=== PATIENT | male | born 1940 | race Two or more races ===

== ENCOUNTER 2025-02-22 08:45 | Outpatient (RCR) | payer MEDICARE, SELFPAY | END 2025-02-22 23:59 | disposition home or self-care (01) | LOC: CRHB 08:45 | PROVIDERS: ATTENDING PHYSICIAN Internal Medicine Clinical Cardiac Electrophysiology; FAMILY PHYSICIAN Family Medicine | DX: Z95.5 Presence of coronary angioplasty implant and graft (principal); I25.10 Atherosclerotic heart disease of native coronary artery without angina pectoris (principal); I25.2 Old myocardial infarction | CPT/HCPCS: G0422; G0423 ==

== ENCOUNTER 2025-03-10 08:52 | Emergency (ER) | payer MEDICARE, SELFPAY ==
[2025-03-10 09:01] VITALS: BP 145/69
[2025-03-10 09:13] VITALS: BMI 27.5
[2025-03-10 09:15] VITALS: BP 157/81
--- NOTE | 2025-03-10 09:34 | ED.GENMED ---
History of Present Illness
General
Chief Complaint: Heart Rate Problem
Time Seen by Provider: 03/10/25 09:06
History of Present Illness
History of Present Illness:
84-year-old male with history of PE on Xarelto, paroxysmal A-fib, hypertension, hyperlipidemia, CAD with 2 stents placed in December 2024 presenting to the emergency department for elevated heart rate. Patient had a heart attack in December at [facility], at which time he had a stent placed to both his LAD and OM. Patient has been following at cardiac rehab at [place]. He was at cardiac rehab today, and while on the treadmill, after 15 minutes started to feel short of breath.
Heart rate went up to the 160s. Patient was sent to the ER for further evaluation. Denies ever having this issue during cardiac rehab in the past. Denies present chest pain or difficulty breathing. Patient has been following with his
information security risk analyst at [facility], Dr. Ying. Notes compliance with his medications. Denies recent fever or illness. Denies additional acute medical complaints
Phy Exam
Physical Exam
Physical Exam:
General: Well-appearing, no clinical signs of dehydration, nontoxic and in no acute distress
HEENT: protecting airway
Neck: appears supple
CV: Normal heart rate, regular rhythm
Resp: No accessory muscle use, no increased work of breathing
Abd: Soft and non-distended, no tenderness to palpation
Extremities: No deformities, no swelling, no erythema
Neuro: alert, no focal neurologic deficit
: deferred
Rectal: deferred
Psych: Normal affect
Skin: Intact
Course
Orders/Labs/Results
Orders:
Orders
03/10/25 08:54
Electrocardiogram (*1) Urgent
Reason for Study: Atrial Fibrillation
EKG- Treatment ONCE
03/10/25 09:30
CR Chest - 2 Views Urgent
Comment:
Reason For Exam: sob
03/10/25 10:13
Complete Blood Count/With Diff Urgent
Comprehensive Metabolic Panel Urgent
NT-proBNP Urgent
Troponin I Urgent
03/10/25 12:06
EKG- Treatment ONCE
03/10/25 13:00
Electrocardiogram (*1) Urgent
Reason for Study: Chest Pain
Troponin I Urgent
Abnormal Lab Results
03/10/25
10:13
WBC 3.5 L 10^3/uL
(4.8-10.8)
RBC 4.03 L 10^6/uL
(4.70-6.10)
Hgb 10.1 L g/dL
(13.0-18.0)
Hct 31.6 L %
(39.0-52.0)
MCV 78.4 L fL
(80.0-94.0)
MCH 25.1 L pg
(27.0-31.0)
MCHC 32.0 L g/dL
(33.0-37.0)
MPV 12.8 H fL
(7.4-10.4)
Absolute Lymphs (auto) 0.9 L 10^3/uL
(1.2-3.4)
Absolute Monos (auto) 0.7 H 10^3/uL
(0.1-0.6)
Monocytes % 20.1 H %
(1.7-9.3)
BUN 29 H mg/dl
(9-20)
Creatinine 1.5 H mg/dL
(0.7-1.3)
Glucose 113 H mg/dl
(70-99)
03/10/25 10:13
03/10/25 10:13
Vital Signs
Initial and Last Documented VS:
Initial Vital Signs
Temp
98.2 F
03/10/25 08:54
Last Documented Vital Signs
Temp Pulse Resp BP Pulse Ox
98.2 F 56 12 164/72 98
03/10/25 08:54 03/10/25 12:45 03/10/25 12:45 03/10/25 12:00 03/10/25 12:45
MDM/Problems Addressed
MDM/Problems Addressed:
84-year-old male with history of PE on Xarelto, paroxysmal A-fib, hypertension, hyperlipidemia, CAD with 2 stents placed in December 2024 presenting for episode of dyspnea and elevated heart rate while at cardiac rehab. Vital signs on arrival are
normal.
On exam patient is resting comfortably, no acute distress. Currently only reporting some 'fogginess ', otherwise denies chest pain or difficulty breathing. Patient arrives with tracings from cardiac rehab, show tachycardia up to 150 range, wide
complex. EKG on arrival however is sinus rhythm without acute evidence of ischemia. However, concerning story of exertional dyspnea with irregular heart rhythm. For this reason we will obtain laboratory analysis and plan for cardiac consultation.
10:30 -Case discussed with cardiology, who will come to evaluate
13:15 - Per cardiology assessment, in conjunction with discussion with his information security risk analyst, feel patient can go home. Financial Director is going to call him today and start him on another medication called Multaq. Plan for close interval follow-up with
cardiology. Strict return precautions were communicated to patient and patient verbalized understanding
*EKG
Interpreted by ED Provider?: Yes
EKG Intrepretation Date: 03/10/25
EKG Intrepretation Time: 09:37
Interpretation: normal
Comparison EKG: no comparison EKG present
Heart Rate: 77
Rate: normal
Rhythm: sinus
[place]: normal axis
Interval: normal interval
QRS Pattern: normal QRS
Ischemia: no ischemia
*Critical Care Note
Total Time (30-74mins, 75-104mins- exclusive of procedures): Not Applicable
ED Attending Note
-
Portions of this chart may have been created with voice recognition software.� Occasional wrong word or��sound alike� substitutions may have occurred due to the inherent limitations of voice recognition software.
Discharge Plan
Departure
Patient Disposition: Home (Routine Discharge)
Date of Disposition: 03/10/25
Time of Disposition: 13:19
Patient with high blood pressure during this ER visit?: No
Condition: Good
Discharge Problem:
Dyspnea, Tachycardia
Instructions: Shortness of breath in adults - ED discharge instructions
Referrals:
Eldon Dowell DO [Family Provider] -
Activity Restrictions/Additional Instructions:
You were seen in the emergency department for difficulty breathing and elevated heart rate during your cardiac rehab
You were found to have reassuring EKG in the emergency department, as well as laboratory analysis. You were seen by the information security risk analyst here, and in discussion with your information security risk analyst, he is planning to start you on a new medication called Multaq. He
is going to call you for the prescription. Please follow-up closely with your information security risk analyst.
Please follow-up closely with your primary care physician.
Return to the emergency department for any worsening of your symptoms, or any development of chest pain, difficulty breathing, abdominal pain with persistent vomiting and inability to tolerate food or liquid by mouth (concern for dehydration),
weakness, headache or confusion, fever greater than 100.4, or any additional symptoms that are concerning to you.
Thank you for choosing [facility].
Interventions
Interventions:
*Risk Screen - Suicide Last Done: 03/10/25 08:54
*General Assessment Last Done: 03/10/25 09:16
*Neglect/Abuse Screening Last Done: 03/10/25 08:54
*ED- Fall Risk Assessment Last Done: 03/10/25 09:16
*ED COVID-19 Vaccine History Last Done: 03/10/25 09:16
ED- Cardiac Assessment Last Done: 03/10/25 09:16
ED- Pulmonary Assessment Last Done: 03/10/25 09:16
Discharge Date and Time
Print Language: CITIZEN OF [place]
[2025-03-10 10:13] VITALS: BP 135/71
[2025-03-10 10:26] LABS: % Basophils 1.1 % (0-2); % Eosinophils 3.1 % (0-6); % Immature Granulocytes 0.3 % (0-0.5); % Lymphocytes 24.4 % (20.5-51.1); % Monocytes 20.1 % (1.7-9.3); Absolute Eosinophils 0.1 10^3/uL (0-0.7); Absolute Lymphocytes 0.9 10^3/uL (1.2-3.4); Absolute Monocytes 0.7 10^3/uL (0.1-0.6); Absolute Neutrophils 1.8 10^3/uL (1.4-6.5); Hematocrit 31.6 % (39.0-52.0); Hemoglobin 10.1 g/dL (13.0-18.0); Mean Corpuscular Hgb 25.1 pg (27.0-31.0); Mean Corpuscular Volume 78.4 fL (80.0-94.0); Mean Platelet Volume 12.8 fL (7.4-10.4); Nucleated Red Blood Cells % 0 % (-); Platelet Count 210 10^3/uL (130-400); Red Blood Cell Count 4.03 10^6/uL (4.70-6.10); Red Cell Dist. Width 14.4 % (11.5-14.5); White Blood Cell Count 3.5 10^3/uL (4.8-10.8)
[2025-03-10 10:46] LABS: NT-proBNP 682 pg/ml; Troponin I 0.018 ng/ml
[2025-03-10 11:00] VITALS: BP 125/61
[2025-03-10 11:08] LABS: ALT (SGPT) 20 U/L (0-50); AST (SGOT) 26 U/L (17-59); Albumin 3.6 g/dl (3.5-5.0); Alkaline Phosphatase 89 U/L (38-126); Blood Urea Nitrogen 29 mg/dl (9-20); Calcium 9.5 mg/dl (8.4-10.2); Carbon Dioxide 26 mmol/L (22-30); Chloride 107 mmol/L (98-107); Estimated Creatinine Clearance 34 ml/min; Glucose 113 mg/dl (70-99); Potassium 4.5 mmol/L (3.5-5.1); Sodium 142 mmol/L (135-145); Total Bilirubin 0.4 mg/dl (0.2-1.3); Total Protein 6.5 g/dl (6.3-8.2); eGFR 45.06
--- NOTE | 2025-03-10 11:46 | CON.CAR ---
Addendum entered and electronically signed by Stefan Aburto MD 03/10/25 14:04:
I saw and examined the patient.
The Medical Center Manager's note was reviewed and I agree with the note.
Comment:
GEN: No distress, awake, Ox3
HEENT: supple, anicteric, mmm
LUNGS: CTA, no wheezes/rales
CV: Reg, S1/S2, 1/6 syst LSB, no gallop
ABD: soft, BS+, NT/ND
EXT: No edema
NEURO: Gross non-focal
SKIN: No rash
Plan:
84-year-old male with past medical history of recent non-STEMI at [facility] status post multivessel PCI of RCA and diagonal presents with elevated heart rate and episodes of atrial tachycardia/brief atrial fibrillation in cardiac rehab.
The patient was exercising felt some lightheadedness and noticed his heart rate went up to the 160s. He was sent to the emergency room for further evaluation. Upon arrival in the ER he was in sinus rhythm with PACs.
I reviewed all of his strips. He is difficult to assess whether these episodes are brief episodes of atrial fibrillation or atrial tachycardia. Fortunately he is already on Xarelto due to history of pulmonary embolism.
His case was discussed with his primary greenskeeper Dr. Li. His plan is to initiate Multaq over the next 24 hours. Liver function testing is normal, creatinine is 1.5.
For now would continue Toprol 25 mg daily. Continue Plavix and Xarelto.
Okay for discharge with follow-up with Dr. Li
Original Note:
Consultation
Consultation Request
Date/Time Consultation Requested: 03/10/25
Date/Time Consultation Performed: 03/10/25
Requesting Provider: Dr. Brito in the ER
Performing Provider: Dr. Aburto
Reason for Consultation: Abnormal heart rate and rhythm during cardiac rehab
Medical History
-
History of Present Illness:
Patient was sent from cardiac rehab to the ER for rapid HR on monitor and lightheadedness, cardiology is consulted. Patient had a NSTEMI treated at [facility] 12/2024. He had CUTTER FIRST RCA and Diag-1 seen on cath and also LAD and OM-3 disease and he was stented
in staged procedures. Patient also noted to have new Afib during admission for NSTEMI and post-PCI was placed on a regimen of aspirin, Plavix and Xarelto for weeks and is now on Plavix and Xarelto. 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
Patient reports he was asymptomatic with Afib at [facility] and no documented recurrence. Patient has been exercising at cardiac rehab for 6 weeks and today they increased his exercise levels and he felt lightheaded and noticed his HR was suddenly 160.
Shortly thereafter the cardiac rehab therapist came over and reported an abnormality on the monitor and exercise was stopped. Patient was sent to the ER for possible Afib, but was in SR with rare PACs in the ER. Cardiac rehab strips looked like SR
with PACs and Atach. Patient feels well now. No chest pain or palpitations.
PMH:
Paroxysmal Afib
initial diagnosis during NSTEMI 12/2024
PACs
Chronic Xarelto OAC
CAD
s/p NSTEMI, SUSANA to prox-mid LAD 01/04/25
s/p 3 mm Xience to ostial and prox OM-3 01/06/25
residual CUTTER FIRST Diag-1, CUTTER FIRST RCA
ICM EF 35-40% by echo 12/2024
Chronic HFrEF
Mild
HTN
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
CKD 3a
DM 2
Hyperlipidemia
h/o prostate cancer
Past Medical History
Past Medical History: Other (in HPI)
Past Surgical History: Cardiac (LAD and OM-3 stents 12/2024)
Social History
Tobacco: Non-Smoker
Alcohol: None
Drug: None
Personal:
Living: With Family
Family History
Family History: Reviewed & Not Pertinent
Allergies / Home Medications
Allergy/AdvReac Type Severity Reaction Status Date / Time
No Known Allergies Allergy Verified 03/10/25 08:56
Review of Systems
-
History Source: Patient and Family ()
All other systems: Negative unless noted
Physical Exam
Vital Signs
Temp Pulse Resp BP Pulse Ox
98.2 F 84 18 145/69 98
03/10/25 08:54 03/10/25 09:01 03/10/25 09:01 03/10/25 09:01 03/10/25 09:01
GEN: NAD. AAOx3
HEENT: EOMI, MMM, wearing glasses
LUNGS: RA. CTA B/L, no wheeze
CV: SR on tele. Reg, S1/S2, 1/6 LSB
ABD: soft, BS+, NT/ND
EXT: No edema B/L LE. 2+ radial and PT pulses B/L
NEURO: Gross non-focal
SKIN: No rash
Lab Results
03/10/25 10:13
03/10/25 10:13
Troponin I 0.018 ng/ml 03/10/25 10:13
Rip-N-Xuodiizbfnm Pept 682 pg/ml 03/10/25 10:13
Impression / Plan
-
PCP: Dr. Eldon Dowell
Card: Dr. Cesar Ying
Impression:
Lightheaded with rapid and irregular rhythm during cardiac rehab session 03/10/25
Paroxysmal atrial tachycardia
Paroxysmal Afib
initial diagnosis during NSTEMI 12/2024
PACs
Chronic Xarelto OAC
CAD
s/p NSTEMI, SUSANA to prox-mid LAD 01/04/25
s/p 3 mm Xience to ostial and prox OM-3 01/06/25
residual CUTTER FIRST Diag-1, CUTTER FIRST RCA
ICM EF 35-40% by echo 12/2024
Chronic HFrEF
Mild
HTN
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
CKD 3a
DM 2
Hyperlipidemia
h/o prostate cancer
Echo 12/10/24: EF 65-70%, mild peak/mean 25/15 mmHg
Echo 01/06/25: EF 35-40%, severe hypokinesis mid to apical anterior and mid to apical anteroseptal bhatia
Plan:
-Patient was sent from cardiac rehab to the ER for rapid HR on monitor and lightheadedness, cardiology is consulted. Patient had a NSTEMI treated at [facility] 12/2024. He had CUTTER FIRST RCA and Diag-1 seen on cath and also LAD and OM-3 disease and he was stented
in staged procedures. Patient also noted to have new Afib during admission for NSTEMI and post-PCI was placed on a regimen of aspirin, Plavix and Xarelto for weeks and is now on Plavix and Xarelto. 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
Patient reports he was asymptomatic with Afib at [facility] and no documented recurrence. Patient has been exercising at cardiac rehab for 6 weeks and today they increased his exercise levels and he felt lightheaded and noticed his HR was suddenly 160.
Shortly thereafter the cardiac rehab therapist came over and reported an abnormality on the monitor and exercise was stopped. Patient was sent to the ER for possible Afib, but was in SR with rare PACs in the ER. Cardiac rehab strips looked like SR
with PACs and Atach. Patient feels well now. No chest pain or palpitations.
-Cardiac rehab tele strips reviewed by me and look like SR with PACs and Atach. ECG in the ER now looks like SR. Tele throughout interview was SR
-Patient asked me to call and talk to his primary greenskeeper. I called and was able to talk to Dr. Ying who would like patient to stay on current dose of Toprol XL [address] Ying will call the patient later today and talk to him
about starting Multaq for AAD.
-Cont Xarelto 20 mg daily
-Troponin normal
-Cre is 1.5 with known CKD 3a
-Cardiology f/u arranged and patient can be d/c'd from the ER
-76 min face to face and coordination of care and review of records
[2025-03-10 12:00] VITALS: BP 164/72
== END 2025-03-10 14:00 | disposition home or self-care (01) ==
LOC: EMR 08:52
PROVIDERS: EMERGENCY PHYSICIAN Student in an Organized Health Care Education/Training Program; FAMILY PHYSICIAN Family Medicine; OTHER PHYSICIAN Internal Medicine Cardiovascular Disease
DX: R06.00 Dyspnea, unspecified (principal); I47.19 Other supraventricular tachycardia; I48.0 Paroxysmal atrial fibrillation; I13.0 Hypertensive heart and chronic kidney disease with heart failure and stage 1 through stage 4 chronic kidney disease, or unspecified chronic kidney disease; E11.22 Type 2 diabetes mellitus with diabetic chronic kidney disease; I50.22 Chronic systolic (congestive) heart failure; N18.31 Chronic kidney disease, stage 3a; E78.5 Hyperlipidemia, unspecified; I25.10 Atherosclerotic heart disease of native coronary artery without angina pectoris; I25.2 Old myocardial infarction; Z79.01 Long term (current) use of anticoagulants; Z79.02 Long term (current) use of antithrombotics/antiplatelets; Z85.46 Personal history of malignant neoplasm of prostate; Z86.711 Personal history of pulmonary embolism; Z95.5 Presence of coronary angioplasty implant and graft; R42 Dizziness and giddiness
CPT/HCPCS: 99285; 71046; 80053; 83880; 84484; 85025; 93005

== ENCOUNTER 2025-03-24 08:54 | Outpatient (RCR) | payer MEDICARE, SELFPAY | END 2025-03-24 23:59 | disposition home or self-care (01) | LOC: CRHB 08:54 | PROVIDERS: ATTENDING PHYSICIAN Internal Medicine Clinical Cardiac Electrophysiology; FAMILY PHYSICIAN Family Medicine | DX: I21.4 Non-ST elevation (NSTEMI) myocardial infarction (principal); Z95.5 Presence of coronary angioplasty implant and graft | CPT/HCPCS: G0422; G0423 ==

== ENCOUNTER 2025-04-23 09:43 | Outpatient (RCR) | payer MEDICARE, SELFPAY | END 2025-04-23 23:59 | disposition home or self-care (01) | LOC: CRHB 09:43 | PROVIDERS: ATTENDING PHYSICIAN Internal Medicine Clinical Cardiac Electrophysiology; FAMILY PHYSICIAN Family Medicine | DX: I25.10 Atherosclerotic heart disease of native coronary artery without angina pectoris (principal); I21.4 Non-ST elevation (NSTEMI) myocardial infarction (principal); I25.2 Old myocardial infarction; Z95.5 Presence of coronary angioplasty implant and graft | CPT/HCPCS: G0422; G0423 ==

== ENCOUNTER 2025-05-12 08:49 | Outpatient (RCR) | payer MEDICARE, SELFPAY | END 2025-05-12 10:45 | disposition home or self-care (01) | LOC: CRHB 08:49 | PROVIDERS: ATTENDING PHYSICIAN Internal Medicine Clinical Cardiac Electrophysiology; FAMILY PHYSICIAN Family Medicine | DX: I25.10 Atherosclerotic heart disease of native coronary artery without angina pectoris (principal); Z95.5 Presence of coronary angioplasty implant and graft; I25.2 Old myocardial infarction | CPT/HCPCS: G0422; G0423 ==